=== PATIENT | female | born 1985 | race Caucasian/White ===

== ENCOUNTER → 2017-06-16 | Outpatient (CLI) | payer BC ==
[~2017-06-16] MED LIST: ALPR1 PO; Abilify2 MG; Acidophilus La100 GM; Allegra-D 12 H1 EACH; BIRTH CONTROL; BUPAP 50 MG-301 EACH; BUPR150ER PO; BUPR150T2 PO; CEPH500 PO; CETI5 PO; DICY20 PO; FETZIMA1 EACH PO; FLUT.05NI; GABA300 PO; HYDACE5 PO; HYDACE5325 PO; HYDCHL12.5; IBUP800; LINZESS290 MCG; METCAR500 PO; Mirena1 EACH VG; OMEP20ER PO; ONDA4ODT MM; OXYACE5T PO; PROM25; PROM25 PO; Pepcid40 MG PO; SUCR1; TOPI100; TOPI25 PO; Tamiflu75 MG PO; VICODIN 5-3001 EACH; ZOLP12.5; Zanaflex2 M1; Zofran Odt4 MG SL; Zofran4 MG PO
[2017-06-16 13:39] LABS: Bilirubin, Urine Neg (Neg); Blood, Urine Neg (Neg); Glucose Qualitative, Urine Neg (Neg); Ketones, Urine Neg (Neg); Leukocyte Esterase, Urine 1+ (Neg); Nitrite, Urine Neg (Neg); Protein, Urine Neg (Neg); Specific Gravity, Urine 1.015 (1.003-1.022); Urobilinogen, Urine NORM (Normal)
[2017-06-16 13:53] LABS: Appearance, Urine Hazy (Clear); Color, Urine Pale Yellow (P-Yellow)
[2017-06-16 13:57] LABS: Bacteria Few /hpf; Red Blood Cells, Urine 0-2 /hpf (0-2); Squamous Epithelial Cells Few /hpf (Few)
== END | disposition home or self-care (01) ==
LOC: LAB 13:13
PROVIDERS: Obstetrics & Gynecology
DX: R39.9 Unspecified symptoms and signs involving the genitourinary system (principal)
CPT/HCPCS: 81001; 87086

== ENCOUNTER → 2017-07-02 | Outpatient (CLI) | payer BC | END | disposition home or self-care (01) | LOC: LAB EV 09:45 | DX: N39.0 Urinary tract infection, site not specified (principal); R21 Rash and other nonspecific skin eruption | CPT/HCPCS: 87070; 87205 ==

== ENCOUNTER → 2017-07-02 | Outpatient (CLI) | payer BC | END | disposition home or self-care (01) | LOC: LAB SHORT 07:44 → PLD 07:44 | DX: D22.5 Melanocytic nevi of trunk (principal) | CPT/HCPCS: 88305 ==

== ENCOUNTER 2017-09-03 07:32 | Day surgery (SDC) | payer BC ==
[~2017-09-03] VITALS: Ht 160 cm; Wt 52.2 kg
[~2017-09-03 07:32] MED LIST changes: -Abilify2 MG; -Acidophilus La100 GM; -Allegra-D 12 H1 EACH; -BUPAP 50 MG-301 EACH; -BUPR150ER PO; -HYDCHL12.5; -IBUP800; -LINZESS290 MCG; -PROM25; -SUCR1; -TOPI100; -VICODIN 5-3001 EACH; -ZOLP12.5; -Zanaflex2 M1
[2017-09-03] MEDS ORDERED: Allegra-D 12 H1 EACH (08:13)
[2017-09-03] MEDS ORDERED: BUPR150ER PO (08:13)
[2017-09-03] MEDS ORDERED: Zanaflex2 M1 (08:14)
[2017-09-03] MEDS ORDERED: PROM25 (08:14)
[2017-09-03] MEDS ORDERED: LINZESS290 MCG (08:14)
[2017-09-03] MEDS ORDERED: BUPAP 50 MG-301 EACH (08:14)
[2017-09-03] MEDS ORDERED: HYDCHL12.5 (08:14)
[2017-09-03] MEDS ORDERED: TOPI100 (08:15)
[2017-09-03] MEDS ORDERED: VICODIN 5-3001 EACH (08:15)
[2017-09-03] MEDS ORDERED: IBUP800 (08:15)
[2017-09-03] MEDS ORDERED: Acidophilus La100 GM (08:15)
[2017-09-03] MEDS ORDERED: ZOLP12.5 (08:16)
[2017-09-03] MEDS ORDERED: SUCR1 (08:16)
== END 2017-09-03 09:20 | disposition home or self-care (01) ==
LOC: ORSCSDS 07:32
PROVIDERS: Internal Medicine Gastroenterology
PROC: 0DB68ZX Excision of Stomach, Via Natural or Artificial Opening Endoscopic, Diagnostic (ICD-10-PCS; principal; 2017-09-03 08:45)
PROC: 0DB88ZX Excision of Small Intestine, Via Natural or Artificial Opening Endoscopic, Diagnostic (ICD-10-PCS; principal; 2017-09-03 08:45)
DX: K30 Functional dyspepsia (principal); K27.9 Peptic ulcer, site unspecified, unspecified as acute or chronic, without hemorrhage or perforation; K29.80 Duodenitis without bleeding; R10.9 Unspecified abdominal pain; F41.9 Anxiety disorder, unspecified; Z87.891 Personal history of nicotine dependence; Z79.899 Other long term (current) drug therapy
CPT/HCPCS: 88305; 88342; J0330; J1980; J2250; J2405; J7120

== ENCOUNTER → 2017-09-23 | Outpatient (CLI) | payer BC ==
[~2017-09-23] MED LIST changes: +Acidophilus La100 GM; +Allegra-D 12 H1 EACH; +BUPAP 50 MG-301 EACH; +BUPR150ER PO; +HYDCHL12.5; +IBUP800; +LINZESS290 MCG; +PROM25; +SUCR1; +TOPI100; +VICODIN 5-3001 EACH; +ZOLP12.5; +Zanaflex2 M1
[2017-09-23 14:12] LABS: Candida species (DNA Probe) Negative (NEGATIVE); G. vaginalis (DNA Probe) Negative (NEGATIVE); T. vaginalis (DNA Probe) Negative (NEGATIVE)
== END | disposition home or self-care (01) ==
LOC: LAB SHORT 10:39 → LAB 10:39
PROVIDERS: Obstetrics & Gynecology
DX: Z01.419 Encounter for gynecological examination (general) (routine) without abnormal findings (principal); N76.0 Acute vaginitis
CPT/HCPCS: 87480; 87510; 87624; 87660; G0123

== ENCOUNTER 2017-11-19 07:05 | Day surgery (SDC) | payer BC ==
[~2017-11-19] VITALS: Ht 157.5 cm; Wt 50.8 kg
== END 2017-11-19 09:14 | disposition home or self-care (01) ==
LOC: ORSCSDS 07:05
PROVIDERS: Internal Medicine Gastroenterology
PROC: 0DB68ZX Excision of Stomach, Via Natural or Artificial Opening Endoscopic, Diagnostic (ICD-10-PCS; principal; 2017-11-19 08:30)
DX: K25.9 Gastric ulcer, unspecified as acute or chronic, without hemorrhage or perforation (principal); F41.9 Anxiety disorder, unspecified; Z87.891 Personal history of nicotine dependence; Z79.899 Other long term (current) drug therapy
CPT/HCPCS: 88305; 88342; J0330; J1980; J2250; J2405; J7120

== ENCOUNTER 2018-01-10 14:16 | Day surgery (SDC) | payer BC ==
[~2018-01-10] VITALS: Ht 157.5 cm; Wt 49.5 kg
== END 2018-01-10 16:10 | disposition home or self-care (01) ==
LOC: ORSCSDS 14:16
PROVIDERS: Internal Medicine Gastroenterology
PROC: 0DJD8ZZ Inspection of Lower Intestinal Tract, Via Natural or Artificial Opening Endoscopic (ICD-10-PCS; principal; 2018-01-10 15:30)
DX: K59.00 Constipation, unspecified (principal); K63.89 Other specified diseases of intestine; K64.8 Other hemorrhoids; F41.9 Anxiety disorder, unspecified; K58.9 Irritable bowel syndrome, unspecified; Z87.891 Personal history of nicotine dependence; Z79.899 Other long term (current) drug therapy
CPT/HCPCS: J2250

== ENCOUNTER 2018-02-09 09:28 | Day surgery (SDC) | payer BC ==
[~2018-02-09] VITALS: Ht 157.5 cm; Wt 51.4 kg
== END 2018-02-09 14:29 | disposition home or self-care (01) ==
LOC: ORSCSDS 09:28
DX: J34.2 Deviated nasal septum (principal); J34.3 Hypertrophy of nasal turbinates; K21.9 Gastro-esophageal reflux disease without esophagitis; Z87.891 Personal history of nicotine dependence; Z79.899 Other long term (current) drug therapy
CPT/HCPCS: J0171; J1100; J2250; J2405; J2710; J3010; J7120

== ENCOUNTER 2018-06-22 08:06 | Day surgery (SDC) | payer BC ==
[~2018-06-22] VITALS: Ht 157.5 cm; Wt 52.4 kg
[~2018-06-22 08:06] MED LIST changes: +Abilify2 MG; +Alprazolam1 MG PO; +Budeprion Xl300 MG PO; +Butalbital-Asa1 EAC1 PO; +GABA400 PO; +Mirena1 EACH VAG; +ONDA4ODT; +PROBIOTIC & AC1 EACH PO; +SUCR1 PO; +TIZANIDINE HCL2 MG PO; +TOPI100 PO; +ZOLP12.5 PO
[2018-06-22] MEDS ORDERED: BUPR150ER (08:54)
== END 2018-06-22 09:38 | disposition home or self-care (01) ==
LOC: ORSCSDS 08:06
PROVIDERS: Internal Medicine Gastroenterology
PROC: 0DJ08ZZ Inspection of Upper Intestinal Tract, Via Natural or Artificial Opening Endoscopic (ICD-10-PCS; principal; 2018-06-22 09:15)
DX: R10.9 Unspecified abdominal pain (principal); F41.9 Anxiety disorder, unspecified; R11.2 Nausea with vomiting, unspecified; K44.9 Diaphragmatic hernia without obstruction or gangrene; Z87.11 Personal history of peptic ulcer disease; Z87.891 Personal history of nicotine dependence; Z79.899 Other long term (current) drug therapy
CPT/HCPCS: J2250; J7120

== ENCOUNTER → 2018-11-27 | Outpatient (CLI) | payer BC ==
[~2018-11-27] MED LIST changes: +ABILIFY MYCITE15 MG PO; +Aldactone50 MG PO; +BUPR150ER; +HYOS.125 PO; +MELO7.5 PO; +MONDOXYNE NL100 MG PO; -ONDA4ODT; +ONDA4ODT SL; +PARO20 PO
== END | disposition home or self-care (01) ==
LOC: LAB 14:45 → LAB SHORT 14:45
DX: N39.0 Urinary tract infection, site not specified (principal)
CPT/HCPCS: 87077; 87086; 87186

== ENCOUNTER → 2018-12-14 | Outpatient (CLI) | payer BC ==
[2018-12-14 14:54] LABS: Source, Urine Clean Catch
[2018-12-14 15:50] LABS: Bilirubin, Urine Neg (Neg); Blood, Urine 1+ (Neg); Glucose Qualitative, Urine Neg (Neg); Ketones, Urine Neg (Neg); Leukocyte Esterase, Urine 3+ (Neg); Nitrite, Urine Neg (Neg); Protein, Urine Neg (Neg); Urobilinogen, Urine NORM (Normal)
[2018-12-14 16:13] LABS: Appearance, Urine Clear (Clear); Color, Urine Yellow (P-Yellow)
[2018-12-14 16:14] LABS: Bacteria Mod /hpf; Squamous Epithelial Cells Few /hpf (Few)
== END | disposition home or self-care (01) ==
LOC: LAB SHORT 14:53 → LAB 14:53 → LAB FUT 12-15 14:20
PROVIDERS: Urology Female Pelvic Medicine and Reconstructive Surgery
DX: R35.0 Frequency of micturition (principal)
CPT/HCPCS: 81001; 87086

== ENCOUNTER 2019-02-22 21:42 | Inpatient (IN) | payer MEDICARE ==
[~2019-02-22] VITALS: Ht 157.5 cm; Wt 53.4 kg
[~2019-02-22 21:42] MED LIST changes: -ABILIFY MYCITE15 MG PO; -Aldactone50 MG PO; -HYOS.125 PO; -MELO7.5 PO; -MONDOXYNE NL100 MG PO; -PARO20 PO
[2019-02-22 22:18] LABS: Source, Urine Clean Catch
[2019-02-22 22:23] LABS: BASOPHILS ABSOLUTE AUTO 0.03 K/mm3 (0.00-0.23); BASOPHILS PERCENT AUTO 1 % (0-2); EOSINOPHILS ABSOLUTE AUTO 0.27 K/mm3 (0.00-0.68); EOSINOPHILS PERCENT AUTO 4 % (0-6); Hematocrit 39.9 % (33.0-51.0); IMMATURE GRAN ABSOLUTE AUTO 0.01 K/mm3 (0.00-0.10); IMMATURE GRAN PERCENT AUTO 0 % (0-1); LYMPHOCYTES ABSOLUTE AUTO 2.76 K/mm3 (0.84-5.20); LYMPHOCYTES PERCENT AUTO 43 % (21-46); MONOCYTES ABSOLUTE AUTO 0.52 K/mm3 (0.16-1.47); MONOCYTES PERCENT AUTO 8 % (4-13); Mean Corpuscular HGB 32.7 pg (26.0-34.0); Mean Corpuscular HGB Conc 32.6 g/dL (31.5-36.5); Mean Corpuscular Volume 100 fL (80-100); Mean Platelet Volume 9.5 fL (9.1-12.4); NEUTROPHILS ABSOLUTE AUTO 2.82 K/mm3 (1.96-9.15); NEUTROPHILS PERCENT AUTO 44 % (41-73); Platelet Count 271 K/mm3 (150-400); RDW Coefficient Variation 13.3 % (11.7-14.2); RDW Standard Deviation 49.7 fL (35.1-46.3); Red Blood Cell Count 3.98 M/mm3 (3.80-5.20); White Blood Cell Count 6.41 K/mm3 (4.00-11.30)
[2019-02-22 22:23] LABS: Appearance, Urine Clear (Clear); Bilirubin, Urine Neg (Neg); Blood, Urine Neg (Neg); Color, Urine Pale Yellow (P-Yellow); Glucose Qualitative, Urine Neg (Neg); Ketones, Urine Neg (Neg); Leukocyte Esterase, Urine Neg (Neg); Nitrite, Urine Neg (Neg); Protein, Urine Neg (Neg); Specific Gravity, Urine 1.005 (1.003-1.022); Urobilinogen, Urine NORM (Normal)
[2019-02-22 22:31] LABS: U Amphetamine Screen Not Detected; U Barbituate Screen DETECTED; U Benzodiazapine Screen Not Detected; U Buprenorphine Screen Not Detected; U Cannabinoids Screen Not Detected; U Cocaine Screen Not Detected; U Methadone Screen Not Detected; U Methamphetamine Screen Not Detected; U Opiates Screen Not Detected; U Oxycodone Screen Not Detected; U Phencyclidine Screen Not Detected; U Propoxyphene Screen Not Detected
[2019-02-22 22:45] LABS: Acetaminophen, Random <2.0 ug/mL (10.0-30.0); Alanine Aminotransfer (ALT/SGP 21 U/L (12-78); Albumin, Blood 3.6 g/dL (3.4-5.0); Albumin/Globulin Ratio 1.1 (0.8-1.8); Alk Phos 75 U/L (50-136); Anion Gap 6 mmol/L (6-16); Aspartate Aminotrans (AST/SGOT 20 U/L (12-37); Bilirubin, Total 0.1 mg/dL (0.1-1.0); Blood Urea Nitrogen 14 mg/dL (8-24); Bun/Creatinine Ratio 14.7 (12.0-20.0); CO2, Blood 25 mmol/L (21-32); Chloride, Blood 117 mmol/L (98-108); Creatinine, Blood 0.95 mg/dL (0.40-1.00); Ethanol (Alcohol), Blood, Med 260 mg/dL; Globulin, Blood 3.2 g/dL (2.2-4.0); Glomerular Filtration Rate >60 (60-); Glucose, Blood 83 mg/dL (70-99); Salicylate <1.7 mg/dL (2.8-20.0); Sodium, Blood 148 mmol/L (136-145); Thyroxine (T4) 6.3 ug/dL (4.8-13.9); Total Protein, Blood 6.8 g/dL (6.4-8.2)
[2019-02-22 22:49] LABS: Thyroid Stimulating Hormone 0.924 uIU/mL (0.360-4.800)
--- NOTE | 2019-02-23 02:33 | NUR ---
ASSUMED PT CARE AT 0100 FROM SHELLY JORGENSEN PT SLEEPING UPON ARRIVAL. AROUSABLE TO VERBAL STIMULI, FOLLOWS SIMPLE DIRECTIONS, PUPILS DILATED TO 7MM, SLUGGISH RESPONSE TO LIGHT. PT VERBALIZED SIMPLE YES/NO ANSWERS TO QUESTIONS, BUT PT IS VERY DROWSY AND WAS NOT ABLE TO STATE WHERE SHE IS AT OR TIME/DATE. PT REMAINS IN NSR WITH LEVOPHED CHANGED TO 5MCG/MIN UPON ARRIVAL TO UNIT. TITRATED DOWN TO 3MCG/MIN; SBP 90'S AND MAP'S MAINTAINING GREATER THAN 60. PT REMAINS A 1:1 DIRECT OBSERVATION D/T HIGH SUICIDE RISK. WILL CONTINUE FREQUENT NEURO CHECKS.
[2019-02-23 03:48] LABS: BASOPHILS ABSOLUTE AUTO 0.04 K/mm3 (0.00-0.23); BASOPHILS PERCENT AUTO 1 % (0-2); EOSINOPHILS ABSOLUTE AUTO 0.24 K/mm3 (0.00-0.68); EOSINOPHILS PERCENT AUTO 3 % (0-6); Hematocrit 35.8 % (33.0-51.0); Hemoglobin 11.5 g/dL (11.5-16.0); IMMATURE GRAN ABSOLUTE AUTO 0.02 K/mm3 (0.00-0.10); IMMATURE GRAN PERCENT AUTO 0 % (0-1); LYMPHOCYTES ABSOLUTE AUTO 2.87 K/mm3 (0.84-5.20); LYMPHOCYTES PERCENT AUTO 36 % (21-46); MONOCYTES ABSOLUTE AUTO 0.48 K/mm3 (0.16-1.47); MONOCYTES PERCENT AUTO 6 % (4-13); Mean Corpuscular HGB 32.5 pg (26.0-34.0); Mean Corpuscular HGB Conc 32.1 g/dL (31.5-36.5); Mean Corpuscular Volume 101 fL (80-100); Mean Platelet Volume 9.3 fL (9.1-12.4); NEUTROPHILS ABSOLUTE AUTO 4.34 K/mm3 (1.96-9.15); NEUTROPHILS PERCENT AUTO 54 % (41-73); Platelet Count 255 K/mm3 (150-400); RDW Coefficient Variation 13.4 % (11.7-14.2); RDW Standard Deviation 50.4 fL (35.1-46.3); Red Blood Cell Count 3.54 M/mm3 (3.80-5.20); White Blood Cell Count 7.99 K/mm3 (4.00-11.30)
[2019-02-23 04:06] LABS: Anion Gap 7 mmol/L (6-16); Blood Urea Nitrogen 13 mg/dL (8-24); Bun/Creatinine Ratio 18.3 (12.0-20.0); CO2, Blood 22 mmol/L (21-32); Calcium, Blood 6.8 mg/dL (8.5-10.1); Chloride, Blood 119 mmol/L (98-108); Creatinine, Blood 0.71 mg/dL (0.40-1.00); Glomerular Filtration Rate >60 (60-); Glucose, Blood 83 mg/dL (70-99); Potassium, Blood 3.8 mmol/L (3.5-5.5); Sodium, Blood 148 mmol/L (136-145)
--- NOTE | 2019-02-23 06:26 | NUR ---
END OF SHIFT SUMMARY PT HAS REMAINED DROWSY AND SLEEPING. HAS BECOME INCREASINGLY EASIER TO AROUSE T/O SHIFT. PT IS ALERT TO SELF, FAMILY, SURROUNDINGS, AND CITY. ABLE TO FOLLOW COMMANDS. PUPILS REMAIN DILATED TO 6MM AND SLUGGISH TO LIGHT. CENTRAL LINE TO RIGHT IJ; LEVOPHED INFUSING AT 5MCG/KG/MIN WITH NS INFUSING AT 200MLS/HR. POISON CONTROL UPDATED WITH RECENT VITAL SIGNS AND NEURO STATUS; NO NEW RECOMMENDATIONS. CALL LIGHT WITHIN REACH; SITTER IN PLACE FOR 1:1 OBSERVATION. WILL CONTINUE TO MONITOR UNTIL REPORT IS HANDED OFF TO ONCOMING RN.
[2019-02-23] MEDS ORDERED: PARO20 PO (07:37)
--- NOTE | 2019-02-23 07:55 | NUR ---
CARE ASSUMED, ASSESSMENT COMPLETED. PT AWAKE, ALERT AND ORIENTED X4, TEARFUL, COOPRATIVE. PT DENIES SUICIDAL IDEATION NOW AND PREVIOUSLY, STATES OVERDOSE WAS NOT A SUICIDE ATTEMPT BUT AN ATTEMPT TO SLEEP. VSS, LEVOPHED TITRATED OFF, WILL CONTINUE TO MONITOR BP'S. PT ASSISTED TO BR WITHOUT DIFFICULTY, GAIT STEADY, VOIDING WITHOUT DIFFICULTY. NS INFUSING PER ORDERS. 1:1 SITTER AT BEDSIDE, SUICIDE PRECAUTIONS IN PLACE. ADMISSION PAPERWORK COMPLETED.
--- NOTE | 2019-02-23 09:58 | NUR ---
PT'S FRIEND IN TO VISIT, PT CALM BUT TEARFUL, FRIEND APPEARS TO BE SUPPORTIVE. FRIEND REPORTS TO THIS RN THAT PATIENT HAS HAD PROBLEMS WITH SEVERE DEPRESSION AND ALCOHOL USE PRIOR TO COMMITING SUICIDE 1 MONTH AGO, DENIES KNOWLEDGE OF PREVIOUS SUICIDE ATTEMPTS. BEHAVIORAL HEALTH IT PROGRAMMER ANALYST IN TO SPEAK WITH PATIENT AT THIS TIME. VSS, PT A&OX4, COOPERATIVE WITH CARES, REMAINS OFF OF PRESSORS.
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
[2019-02-23] MEDS ORDERED: SUCR1 PO (11:22)
[2019-02-23] MEDS ORDERED: HYOS.125 PO (11:24)
[2019-02-23] MEDS ORDERED: ABILIFY MYCITE15 MG PO (11:25)
[2019-02-23] MEDS ORDERED: MONDOXYNE NL100 MG PO (11:26)
[2019-02-23] MEDS ORDERED: MELO7.5 PO (11:27)
[2019-02-23] MEDS ORDERED: Aldactone50 MG PO ×2 (11:28)
--- NOTE | 2019-02-23 11:41 | NUR ---
DR. CASILLAS IN TO SEE PT, NEW ORDERS. VISITORS AT BEDSIDE, MEDICATION LIST UPDATED. COMPASS EMPLOYEE IN TO ASSESS PT. VSS, NO CHANGES NOTED, NEURO ASSESSMENT WNL.
--- NOTE | 2019-02-23 14:05 | NUR ---
IVF DC'D PER ORDERS, PT NOW PCU STATUS WITH TELE. FRIENDS/FAMILY IN TO VISIT, PT CALM AND COOPERATIVE, TEARFUL AT TIMES BUT REMAINS APPROPRIATE. 1:1 MONITOR REMAINS IN ROOM. DISCHARGE PLANNING INVOLVED FOR FURTHER TREATMENT.
--- NOTE | 2019-02-23 14:33 | NUR ---
DC COVER MAT MACHINE OPERATOR AT BEDSIDE TO DISCUSS POSSIBLE PLANS OF CARE WITH PATIENT, HER MOTHER, AND OTHER FAMILY MEMBERS. PT BECAME UPSET AT POSSIBILITY OF INPATIENT PSYCHIATRIC CARE, IS TEARFUL AT THIS TIME, REMOVED BP CUFF AND THREW IT STATING SHE IS SICK OF THE MONITORS AND WANTS TO GO HOME. DISCUSSED NECESSITY OF MONITORING WITH PATIENT, BP CUFF REPLACED, PT COOPERATIVE, REMAINS TEARFUL BUT DENIES NEEDS. FAMILY REMAINS AT BEDSIDE. PATIENT'S PURSE AND PHONE SENT HOME WITH PATIENT'S MOTHER.
--- NOTE | 2019-02-23 16:08 | NUR ---
DR. ELIUFF AT BEDSIDE TO ASSESS, SUICIDE PRECAUTIONS AND 2MD HOLD DROPPED, 1:1 MONITORING DC'D. PT SITTING IN BED, IS PLEASANT AND COOPERATIVE AT THIS TIME, APPROPRIATE BUT REMAINS TEARFUL INTERMITTENTLY. PT APPEARS TO HAVE A GOOD SUPPORT SYSTEM THAT INCLUDES A MOTHER, SISTER, IN-LAWS, AND FRIENDS, ALL WHO HAVE BEEN AT BEDSIDE OFF AND ON TODAY.
--- NOTE | 2019-02-23 17:54 | NUR ---
DISCHARGE ORDERS RECEIVED, CENTRAL LINE TO RIGHT IJ REMOVED PER PROTOCOL WITH TIP INTACT, PRESSURE HELD X6 MINUTES, OCCLUSIVE DRESSING APPLIED, PT LAID FLAT X20 MINUTES AFTER REMOVAL. NO BLEEDING, OOZING OR HEMATOMA NOTED TO SITE AFTER REMOVAL. IV'S X2 REMOVED WITH TIPS INTACT, PRESSURE DRESSINGS APPLIED. PT ALERT AND ORIENTED X4, NEURO ASSESSMENT WNL, VSS, PT APPROPRIATE AND COOPERATRIVE WITH CARE. PT DC TO HOME WITH MOTHER WITH DC INSTRUCTIONS AND BELONGINGS, VERBALIZES UNDERSTANDING, REFUSES WC, GAIT STEADY UPON DISCHARGE.
== END 2019-02-23 17:55 | disposition home or self-care (01) | DRG 917 ==
LOC: ER 21:42 → ICUE 22:28 → ICUW 22:28 → ICUE 02-23 01:00
PROVIDERS: Emergency Medicine; Nurse Practitioner Acute Care; ADMIT Internal Medicine
DX: T42.6X2A Poisoning by other antiepileptic and sedative-hypnotic drugs, intentional self-harm, initial encounter (principal); G92 Toxic encephalopathy; F33.9 Major depressive disorder, recurrent, unspecified; I95.9 Hypotension, unspecified; F41.9 Anxiety disorder, unspecified
CPT/HCPCS: 29105; 36415; 36556; 71045; 80048; 80053; 81003; 81025; 84436; 84443; 85025; 93005; 93010; 96361; 96365; 99285-25; A9270; C1751; G0480; J1265; J1650; J2405; J7030; P9612

== ENCOUNTER → 2019-11-20 | Outpatient (CLI) | payer MEDICARE ==
[~2019-11-20] MED LIST changes: +ABILIFY MYCITE15 MG PO; +AIMOVIG AU140 MG/1 M; +ALDACTONE100 MG; +Aldactone50 MG PO; +HYOS.125 PO; +MELO7.5 PO; +MIRENA1 EAC1; +MONDOXYNE NL100 MG PO; +PARO20 PO
== END | disposition home or self-care (01) ==
LOC: LAB SHORT 08:22 → LAB 08:22
DX: J02.9 Acute pharyngitis, unspecified (principal)
CPT/HCPCS: 87081

== ENCOUNTER 2020-01-10 08:02 | Day surgery (SDC) | payer MEDICARE ==
[~2020-01-10] VITALS: Ht 157.5 cm; Wt 53.8 kg
[2020-01-10] MEDS ORDERED: BUPR100 PO (08:36)
--- NOTE | 2020-01-10 08:46 | NUR ---
01/10/20 0846 Nazia Herrera DECADRONE 10MG IV
--- NOTE | 2020-01-10 12:42 | NUR ---
01/10/20 1242 [place],Mel SANGUENOUS DRAINAGE FROM LEFT EAR INCISION. CLEANSED WITH NS AND DRESSED WITH NON ADHERANT DRESSING AND GAUZE. DC INSTRUCTIONS GIVEN
== END 2020-01-10 12:50 | disposition home or self-care (01) ==
LOC: ORSCSDS 08:02
PROVIDERS: Otolaryngology
PROC: 09QM0ZZ Repair Nasal Septum, Open Approach (ICD-10-PCS; principal; 2020-01-10 09:15)
DX: J34.2 Deviated nasal septum (principal); J34.3 Hypertrophy of nasal turbinates; J34.89 Other specified disorders of nose and nasal sinuses; I10 Essential (primary) hypertension; Z79.899 Other long term (current) drug therapy; F32.9 Major depressive disorder, single episode, unspecified
CPT/HCPCS: C1776; C9046; J1100; J2250; J2405; J2550; J2704; J3010; J7120

== ENCOUNTER 2020-11-22 12:05 | Day surgery (SDC) | payer MEDICARE ==
[~2020-11-22] VITALS: Ht 157.5 cm; Wt 57.5 kg
[~2020-11-22 12:05] MED LIST changes: +AJOVY AUTO225 MG/1.1 SC; +BUPR100 PO; +Doxycycline Mo100 M1 PO; +ESGIC 50-325-41 EACH PO; +HYOS.125 SL; +Norco 5-325 Ta1 EACH PO; +TIZANIDINE HCL2 M1 PO; +UBRELVY100 MG PO; +ZEBUTAL 50-3251 EAC1 PO; +ZOLP10 PO
== END 2020-11-22 12:58 | disposition home or self-care (01) ==
LOC: ORSCSDS 12:05
DX: M51.16 Intervertebral disc disorders with radiculopathy, lumbar region (principal); F41.0 Panic disorder [episodic paroxysmal anxiety]; Z79.899 Other long term (current) drug therapy
CPT/HCPCS: J1040

== ENCOUNTER → 2022-02-23 | Outpatient (CLI) | payer MEDICARE ==
[2022-02-24 10:43] LABS: Candida species (DNA Probe) Negative (NEGATIVE); G. vaginalis (DNA Probe) Positive (NEGATIVE); T. vaginalis (DNA Probe) Negative (NEGATIVE)
[2022-02-25 00:10] LABS: CHLAMYDIA TRACHOMATIS, NAA Negative (Negative)
== END | disposition home or self-care (01) ==
LOC: LAB SHORT 10:00 → LAB 10:00
PROVIDERS: Nurse Practitioner
DX: N30.01 Acute cystitis with hematuria (principal); R35.0 Frequency of micturition; Z20.2 Contact with and (suspected) exposure to infections with a predominantly sexual mode of transmission
CPT/HCPCS: 87086; 87480; 87491; 87510; 87591; 87660

== ENCOUNTER → 2022-05-04 | Outpatient (CLI) | payer MEDICARE | LOC: LAB 16:25 → LAB SHORT 16:25 | DX: N39.0 Urinary tract infection, site not specified (principal) | CPT/HCPCS: 87077; 87086; 87186 ==

== ENCOUNTER → 2023-03-10 | Outpatient (CLI) | payer MEDICARE | LOC: LAB SHORT 13:24 → LAB 13:24 | DX: M54.31 Sciatica, right side (principal); L03.116 Cellulitis of left lower limb | CPT/HCPCS: 87070; 87205 ==

== ENCOUNTER 2024-08-05 21:30 | Emergency (ER) | payer MEDICARE ==
[~2024-08-05] VITALS: Ht 157.5 cm; Wt 57.1 kg
[2024-08-05] MEDS ORDERED: Amoxicillin/Clavulanate K 875 MG Tab PO ONE (22:05)
[2024-08-05] MEDS ORDERED: AMOCLA875 PO (22:06)
[2024-08-05 22:13] VITALS: BP 113/70
== END 2024-08-05 22:19 | disposition home or self-care (01) ==
LOC: ER 21:30
DX: S61.452A Open bite of left hand, initial encounter (principal); S61.451A Open bite of right hand, initial encounter; Z79.899 Other long term (current) drug therapy; Z79.2 Long term (current) use of antibiotics; Z87.891 Personal history of nicotine dependence; W55.01XA Bitten by cat, initial encounter
CPT/HCPCS: 99283; A9270

== ENCOUNTER 2024-09-12 16:36 | Emergency (ER) | payer MEDICARE ==
[~2024-09-12] VITALS: Ht 160 cm; Wt 59.0 kg
[~2024-09-12 16:36] MED LIST changes: +AMOCLA875 PO
[2024-09-12 16:57] VITALS: BP 106/60
[2024-09-12] MEDS ORDERED: NS 1,000 ML IV SCH (17:00)
[2024-09-12] MEDS ORDERED: Ondansetron HCl 2 MG / ML 2ML Vial IV ONE (17:00)
[2024-09-12] MEDS ORDERED: Ketorolac Tromethamine 30mg Vial IV ONE (17:00)
[2024-09-12 17:43] LABS: BASOPHILS ABSOLUTE AUTO 0.03 K/mm3 (0.00-0.23); BASOPHILS PERCENT AUTO 0 % (0-2); EOSINOPHILS PERCENT AUTO 0 % (0-6); Hemoglobin 13.4 g/dL (11.5-16.0); IMMATURE GRAN ABSOLUTE AUTO 0.05 K/mm3 (0.00-0.10); IMMATURE GRAN PERCENT AUTO 1 % (0-1); LYMPHOCYTES PERCENT AUTO 7 % (21-46); MONOCYTES ABSOLUTE AUTO 1.02 K/mm3 (0.16-1.47); MONOCYTES PERCENT AUTO 11 % (4-13); Mean Corpuscular HGB 35.2 pg (26.0-34.0); Mean Corpuscular HGB Conc 34.4 g/dL (31.5-36.5); Mean Corpuscular Volume 102 fL (80-100); Mean Platelet Volume 9.9 fL (9.1-12.4); NEUTROPHILS ABSOLUTE AUTO 7.55 K/mm3 (1.96-9.15); NEUTROPHILS PERCENT AUTO 82 % (41-73); Platelet Count 165 K/mm3 (150-400); RDW Coefficient Variation 12.3 % (11.7-14.2); RDW Standard Deviation 46.7 fL (35.1-46.3); Red Blood Cell Count 3.81 M/mm3 (3.80-5.20); White Blood Cell Count 9.25 K/mm3 (4.00-11.30)
[2024-09-12 18:17] LABS: Albumin, Blood 3.1 g/dL (3.4-5.0); Albumin/Globulin Ratio 0.8 (0.8-1.8); Bilirubin, Total 0.5 mg/dL (0.1-1.0); Bun/Creatinine Ratio 14.7 (12.0-20.0); Calcium, Blood 8.5 mg/dL (8.5-10.1); Creatinine, Blood 0.82 mg/dL (0.40-1.00); Globulin, Blood 4.1 g/dL (2.2-4.0); Potassium, Blood 3.6 mmol/L (3.5-5.5); Total Protein, Blood 7.2 g/dL (6.4-8.2)
== END 2024-09-12 20:00 | disposition home or self-care (01) ==
LOC: ER 16:36
PROVIDERS: Emergency Medicine
DX: R10.84 Generalized abdominal pain (principal); Z79.899 Other long term (current) drug therapy; Z87.891 Personal history of nicotine dependence; Z53.21 Procedure and treatment not carried out due to patient leaving prior to being seen by health care provider
CPT/HCPCS: 74177; 80053; 83690; 84703; 85025; 96374-59; 96375; 99284-25; J1885; J2405; Q9967

== ENCOUNTER → 2024-09-13 | Outpatient (CLI) | payer MEDICARE | LOC: LAB SHORT 17:05 → LAB 17:05 | DX: N10 Acute pyelonephritis (principal) | CPT/HCPCS: 87077; 87086; 87186 ==

== ENCOUNTER → 2025-02-02 | Outpatient (CLI) | payer MEDICARE ==
[2025-02-03 07:35] LABS: Chlamydia Trachomatis Urine NOT DETECTED (NOT DETECT); Neisseria Gonorrhoea Urine NOT DETECTED (NOT DETECT)
== END ==
LOC: LAB SHORT 18:11 → LAB 18:11
PROVIDERS: Physician Assistant
DX: Z11.3 Encounter for screening for infections with a predominantly sexual mode of transmission (principal)
CPT/HCPCS: 87491; 87591

== ENCOUNTER 2025-04-07 11:53 | Emergency (ER) | payer MEDICARE ==
[~2025-04-07] VITALS: Ht 157.5 cm; Wt 55.3 kg
[2025-04-07] MEDS ORDERED: ATOMOXETINE HCL80 M3 PO (12:11)
[2025-04-07] MEDS ORDERED: BUPROPION HCL XL 300 (12:11)
[2025-04-07 12:19] LABS: Source, Urine Clean Catch
[2025-04-07 12:20] LABS: Bilirubin, Urine Neg (Neg); Color, Urine Yellow (P-Yellow); Glucose Qualitative, Urine Neg (Neg); Ketones, Urine Neg (Neg); Leukocyte Esterase, Urine 3+ (Neg); Protein, Urine Neg (Neg); Specific Gravity, Urine 1.010 (1.003-1.022); Urobilinogen, Urine NORM (Normal)
[2025-04-07] MEDS ORDERED: Ketorolac Tromethamine 15mg Vial IV ONE (12:20)
[2025-04-07 12:27] LABS: Red Blood Cells, Urine Not Seen /hpf (0-2)
[2025-04-07 12:57] LABS: BASOPHILS ABSOLUTE AUTO 0.03 K/mm3 (0.00-0.23); BASOPHILS PERCENT AUTO 0 % (0-2); EOSINOPHILS ABSOLUTE AUTO 0.05 K/mm3 (0.00-0.68); EOSINOPHILS PERCENT AUTO 1 % (0-6); Hematocrit 33.6 % (33.0-51.0); Hemoglobin 11.0 g/dL (11.5-16.0); IMMATURE GRAN ABSOLUTE AUTO 0.01 K/mm3 (0.00-0.10); IMMATURE GRAN PERCENT AUTO 0 % (0-1); LYMPHOCYTES ABSOLUTE AUTO 1.72 K/mm3 (0.84-5.20); LYMPHOCYTES PERCENT AUTO 23 % (21-46); MONOCYTES ABSOLUTE AUTO 0.71 K/mm3 (0.16-1.47); MONOCYTES PERCENT AUTO 10 % (4-13); Mean Corpuscular HGB Conc 32.7 g/dL (31.5-36.5); Mean Corpuscular Volume 102 fL (80-100); NEUTROPHILS ABSOLUTE AUTO 4.89 K/mm3 (1.96-9.15); NEUTROPHILS PERCENT AUTO 66 % (41-73); NRBC ABSOLUTE 0.00 K/mm3 (0.00-0.02); NRBC Auto 0.0 /100 WBC (0.0-0.2); Platelet Count 317 K/mm3 (150-400); RDW Coefficient Variation 12.1 % (11.7-14.2); RDW Standard Deviation 45.1 fL (35.1-46.3)
[2025-04-07] MEDS ORDERED: CefTRIAXone Sodium 1,000 MG in NS 100 ML IV ONE (13:15)
[2025-04-07 13:22] LABS: Alanine Aminotransfer (ALT/SGP 22.0 U/L (12-78); Albumin, Blood 3.0 g/dL (3.4-5.0); Albumin/Globulin Ratio 0.7 (0.8-1.8); Anion Gap 7.0 mmol/L (3-11); Aspartate Aminotrans (AST/SGOT 19.0 U/L (12-37); Bilirubin, Total 0.3 mg/dL (0.1-1.0); Blood Urea Nitrogen 18.0 mg/dL (8-24); CO2, Blood 25.0 mmol/L (21-32); Calcium, Blood 8.6 mg/dL (8.5-10.1); Chloride, Blood 107.0 mmol/L (98-108); Creatinine, Blood 0.84 mg/dL (0.40-1.00); Globulin, Blood 4.5 g/dL (2.2-4.0); Glucose, Blood 85.0 mg/dL (70-99); Potassium, Blood 3.8 mmol/L (3.5-5.5); Sodium, Blood 135.0 mmol/L (136-145); Total Protein, Blood 7.5 g/dL (6.4-8.2)
[2025-04-07 13:45] VITALS: BP 98/45
[2025-04-07] MEDS ORDERED: Roxicodone5 MG PO (14:12)
[2025-04-07] MEDS ORDERED: CEFD300 PO (14:12)
== END 2025-04-07 14:24 | disposition home or self-care (01) ==
LOC: ER 11:53
PROVIDERS: Emergency Medicine; Student in an Organized Health Care Education/Training Program
DX: N12 Tubulo-interstitial nephritis, not specified as acute or chronic (principal); N15.1 Renal and perinephric abscess; Z87.891 Personal history of nicotine dependence; Z79.899 Other long term (current) drug therapy
CPT/HCPCS: 74177; 80053; 81001; 81025; 85025; 87077; 87086; 87186; 96365-59; 96375; 99284-25; A9270; J0696; J1885; Q9967